=== PATIENT | female | born 1955 | race Caucasian/White ===

== ENCOUNTER → 2024-10-27 07:28 | Outpatient (REF) | payer OTHER, SELFPAY | LOC: RAD 07:28 | PROVIDERS: ATTENDING PHYSICIAN Internal Medicine | DX: Z85.841 Personal history of malignant neoplasm of brain (principal) | CPT/HCPCS: 70470; Q9967 ==

== ENCOUNTER 2025-07-04 12:01 | Emergency (ER) | payer OTHER, SELFPAY ==
[2025-07-04] VITALS (10 sets, daily range): BP systolic 127–167; BP diastolic 63–79; PULSE 74–86
[2025-07-04 12:17] LABS: Glucose - Point of Care 168 mg/dl (70-99)
--- NOTE | 2025-07-04 12:29 | ED.GENMED ---
History of Present Illness
General
Chief Complaint: Dizziness
Time Seen by Provider: 07/04/25 12:29
History of Present Illness
History of Present Illness:
PAST MEDICAL HISTORY AND REVIEW OF OLD RECORDS
- Patient comes in by ambulance from [facility]. I reviewed records, the patient had a CT in October which was in that suggested a meningioma along the right posterior paramedian occipital lobe.
Note:
CHIEF COMPLAINT(S)
Dizziness
HISTORY OF PRESENT ILLNESS
The patient is a 70-year-old female residing at [facility] long-term, presenting with dizziness. She reports that the dizziness worsens when she lifts her head or changes positions, specifically when turning to the side. The dizziness has been
persistent, resembling symptoms she experienced previously. The patient has a history of a meningioma diagnosed at [place], where two MRIs were performed. Dizziness led her to the hospital previously. She reports having no weakness in her
extremities. Currently, she also experiences mild nausea but has not vomited.
PAST MEDICAL AND SURGICAL HISTORY
The patient has a history of a diagnosed meningioma. She also has a history of diabetes, hyperlipidemia, and hypertension. She reports a history of knee issues due to repeated falls on ice, necessitating the use of a walker.
MEDICATIONS
The patient takes amlodipine, aspirin, a statin, glimepiride, metformin, and is on insulin therapy.
CHRONIC MEDICAL CONDITIONS SIGNIFICANTLY AFFECTING CARE
1. Meningioma
2. Diabetes
3. Hyperlipidemia
4. Hypertension
PHYSICAL EXAM
General: Alert, no acute distress. She does appear somewhat weak.
Skin: Warm, dry.
Head: Normocephalic and atraumatic.
Neck: Supple, trachea midline.
Eye, Ears, Nose, Mouth, and Throat: Oral mucosa moist. Examination for balance issues showed nothing dramatic.
Cardiovascular: Normal peripheral perfusion, no edema. Blood pressure slightly elevated.
Respiratory: Respirations are non-labored.
Gastrointestinal: Abdomen nondistended.
Back: Normal range of motion, normal alignment.
Musculoskeletal: Normal range of motion, normal strength. No weakness noted in extremities.
Neurological: Alert and oriented to person, place, time, and situation. Rtgqup-[id number]-cehm coordination intact. No focal neurological deficit.
Psychiatric: Cooperative, appropriate mood and affect.
PROBLEM LIST
Acute:
1. Dizziness
2. Nausea
Chronic:
1. Meningioma
2. Diabetes
3. Hyperlipidemia
4. Hypertension
PLAN
1. Administer nausea medication.
2. Provide intravenous fluids.
3. Perform a computed tomography (CT) scan to evaluate for any changes in the meningioma.
4. Await results from blood work.
DIFFERENTIAL DIAGNOSIS
The Differential Diagnosis includes, in no particular order and is not limited to:
1. Benign paroxysmal positional vertigo (BPPV)
2. Vestibular neuronitis
3. Labyrinthitis
4. Meniere�s disease
5. Cerebrovascular accident (CVA)
6. Migrainous vertigo
7. Acoustic neuroma
8. Medication-induced dizziness
9. Orthostatic hypotension
10. Persistent postural-perceptual dizziness (PPPD)
RADIOLOGY
- CT shows stable chronic calcified meningioma right occipital region
EKG
- Sinus, normal rate, nonspecific ST abnormality
LABS
- White count
UPDATE
-SUMMARY OF ENCOUNTER
The patient, a 70-year-old female, was seen in the emergency department due to experiencing dizziness, which exacerbates with head movements or positional changes. She resides at a long-term care facility. Her history includes a meningioma,
diabetes, hyperlipidemia, and hypertension. During this visit, a CT scan was performed, which showed the meningioma with no significant changes, indicating that it was stable in size and appearance compared to prior imaging. The dizziness is
suspected to be due to an inner ear issue, possibly benign paroxysmal positional vertigo (BPPV). Since no acute neurological changes were noted and the CT scan was reassuring, it was decided to discharge the patient back to the long-term care
facility with arrangements for transportation via ambulance.
DISPOSITION
Discharge to [facility]-term [facility].
ASSESSMENT
The dizziness is attributed to a likely inner ear issue such as benign paroxysmal positional vertigo (BPPV), given the symptoms and stable CT findings of the existing meningioma.
INDEPENDENT REVIEW OF LABS AND INTERPRETATION OF TESTS
My independent interpretation of the CT scan shows the meningioma is stable with no significant changes from prior imaging.
FOLLOW-UP INSTRUCTIONS
None specified.
MEDICAL DECISION MAKING
- Number and Complexity of Problems Addressed: Chronic conditions affecting care include meningioma, diabetes, hyperlipidemia, and hypertension. Differential diagnosis includes benign paroxysmal positional vertigo (BPPV), vestibular neuronitis,
labyrinthitis, M�ni�re�s disease, cerebrovascular accident (CVA), migrainous vertigo, acoustic neuroma, medication-induced dizziness, orthostatic hypotension, and persistent postural-perceptual dizziness (PPPD).
- Data: My independent interpretation of the CT scan indicated stability with no changes in the meningioma.
- Risk: Consideration of Admission/Observation: Escalation of care including admission/observation was considered given the complexity and risk of the patients presenting complaint, exam findings, and/or their underlying comorbidities. However,
ultimately I feel the patient is safe for outpatient management with close follow-up. Reasoning: Work-up reassuring, does not reveal any acute life/organ threatening processes, patients symptoms well controlled upon reevaluation, reexamination is
reassuring, vitals are stable, patient agreeable with discharge, reliable for follow-up.
DIAGNOSIS
- Dizziness [R42]
- Benign paroxysmal positional vertigo [H81.1]
- Stable meningioma [D32.9]
The patient appears comfortable on reassessment
Phy Exam
Physical Exam
Physical Exam:
See HPI
Course
Orders/Labs/Results
Orders:
Orders
07/04/25 12:04
EKG [Electrocardiogram (*1)] Urgent
Reason for Study: Vertigo / Dizzy
07/04/25 12:05
EKG- Treatment ONCE
07/04/25 12:20
Complete Blood Count/With Diff Urgent
Comprehensive Metabolic Panel Urgent
07/04/25 12:37
CT Head W/o Iv Contrast Urgent
Comment:
Reason For Exam: acute severe dizzy; known occip meningioma
0.9% Sodium Chloride 500 ml [Nss] 500 ml IV BOLUS
Ondansetron Injectable [Zofran] 4 mg IV NOW STA
Abnormal Lab Results
07/04/25 07/04/25
12:15 12:20
WBC 14.1 H 10^3/uL
(4.8-10.8)
RBC 5.52 H 10^6/uL
(4.20-5.40)
Hct 48.4 H %
(37.0-47.0)
MCHC 32.6 L g/dL
(33.0-37.0)
Abs Immat Gran (auto) 0.1 H 10^3/uL
(0-0.05)
Absolute Neuts (auto) 11.4 H 10^3/uL
(1.4-6.5)
Neutrophils % 80.8 H %
(42.2-75.2)
Lymphocytes % 13.3 L %
(20.5-51.1)
Creatinine 0.4 L mg/dL
(0.6-1.0)
Glucose 182 H mg/dl
(70-99)
POC Glucose 168 H mg/dl
(70-99)
07/04/25 12:20
07/04/25 12:20
Vital Signs
Initial and Last Documented VS:
Initial Vital Signs
Temp Pulse Resp BP Pulse Ox
36.8 C 75 22 160/63 97
07/04/25 12:05 07/04/25 12:05 07/04/25 12:05 07/04/25 12:05 07/04/25 12:05
Last Documented Vital Signs
Temp Pulse Resp BP Pulse Ox
36.8 C 66 14 127/64 95
07/04/25 12:05 07/04/25 14:15 07/04/25 14:15 07/04/25 14:00 07/04/25 14:15
*Pulse Oximetry
SaO2: 97
Oxygen Mode of Delivery: Room air
Patient hypoxic: no
*Critical Care Note
Total Time (30-74mins, 75-104mins- exclusive of procedures): Not Applicable
ED Attending Note
-
Portions of this chart may have been created with voice recognition software.� Occasional wrong word or��sound alike� substitutions may have occurred due to the inherent limitations of voice recognition software.
Discharge Plan
Departure
Patient Disposition: Home (Routine Discharge)
Date of Disposition: 07/04/25
Time of Disposition: 15:13
Patient with high blood pressure during this ER visit?: Yes
Discharge Problem:
Dizziness
Instructions: Vertigo (a Type of Dizziness) (DC), BLOOD PRESSURE
Prescriptions:
No Action
atorvastatin [Lipitor] 40 mg Tablet
40 mg PO DAILY
acetaminophen [Tylenol] 325 mg Tablet
650 mg PO Q6HPRN PRN (Reason: mild pain)
thiamine HCl (vitamin B1) 100 mg Tablet
100 mg PO DAILY
aspirin 81 mg Tablet,Delayed Release (Dr/Ec)
81 mg PO DAILY
guaifenesin 100 mg/5 mL Liquid
200 mg PO Q4HPRN PRN (Reason: cough)
glimepiride 1 mg Tablet
1 mg PO BID
amlodipine [Norvasc] 10 mg Tablet
10 mg PO DAILY
docusate sodium [Colace] 100 mg Capsule
100 mg PO BID
clobetasol 0.05 % Ointment
1 applic TOPICAL BID
metformin 500 mg Tablet Extended Release 24 Hr
500 mg PO BID
Systane Ultra (PF) 0.4-0.3 % Dropperette
1 drp BOTH EYES DAILYPRN PRN (Reason: dryness)
insulin glargine 100 unit/mL (3 mL) Insulin Pen
20 unit SC DAILY
[place] 3 Fish Oil 684-1,200 mg Capsule,Delayed Release(Dr/Ec)
1 cap PO DAILY
PreserVision AREDS 2,148 mcg-113 mg-45 mg-17.4mg Tablet
1 tab PO BID
magnesium oxide 400 mg magnesium Tablet
400 mg PO DAILY
Referrals:
Frank Basilio MD [Family Provider]
Activity Restrictions/Additional Instructions:
I suspect that your symptoms are due to positional vertigo. This can intermittently recur for several weeks and usually get better on their own. Your white blood cell count was slightly high at 14.1 but other basic labs were normal. Your glucose
was high at 182. Head CT again shows stable calcified meningioma in the right occipital region.
Interventions
Interventions:
*Risk Screen - Suicide Last Done: 07/04/25 12:12
*General Assessment Last Done: 07/04/25 12:12
*Neglect/Abuse Screening Last Done: 07/04/25 12:12
*ED- Fall Risk Assessment Last Done: 07/04/25 12:12
*ED COVID-19 Vaccine History Last Done: 07/04/25 12:12
ED- Neurological Assessment Last Done: 07/04/25 12:14
ED- Cardiac Assessment Last Done: 07/04/25 12:14
Discharge Date and Time
Print Language: URDU
[2025-07-04] MEDS: ZOFRAN 4 MG IV (12:47)
[2025-07-04] MEDS: NSS 500 IV (12:47)
[2025-07-04 13:02] LABS: Hematocrit 48.4 % (37.0-47.0); Hemoglobin 15.8 g/dL (12.0-16.0); Mean Corp Hgb Conc. 32.6 g/dL (33.0-37.0); Mean Corpuscular Volume 87.7 fL (81.0-99.0); Nucleated Red Blood Cells % 0 %; Platelet Count 351 10^3/uL (130-400); Red Cell Dist. Width 13.2 % (11.5-14.5)
[2025-07-04 13:39] LABS: ALT (SGPT) 21 U/L (0-35); AST (SGOT) 26 U/L (14-36); Albumin 4.5 g/dl (3.5-5.0); Alkaline Phosphatase 82 U/L (38-126); Blood Urea Nitrogen 13 mg/dl (7-17); Calcium 9.4 mg/dl (8.4-10.2); Carbon Dioxide 24 mmol/L (22-30); Chloride 104 mmol/L (98-107); Estimated Creatinine Clearance 94 ml/min; Glucose 182 mg/dl (70-99); Potassium 4.5 mmol/L (3.5-5.1); Sodium 136 mmol/L (135-145); Total Protein 7.8 g/dl (6.3-8.2); eGFR > 60.00
== END 2025-07-04 17:40 | disposition home or self-care (01) ==
LOC: EMR 12:01
PROVIDERS: Student in an Organized Health Care Education/Training Program; EMERGENCY PHYSICIAN Emergency Medicine; FAMILY PHYSICIAN Internal Medicine
DX: R42 Dizziness and giddiness (principal); E11.9 Type 2 diabetes mellitus without complications; I10 Essential (primary) hypertension; E78.5 Hyperlipidemia, unspecified; D32.9 Benign neoplasm of meninges, unspecified; Z79.82 Long term (current) use of aspirin; Z79.84 Long term (current) use of oral hypoglycemic drugs; Z79.4 Long term (current) use of insulin
CPT/HCPCS: 99284; 96374; 70450; 80053; 82962; 85025; 93005

== ENCOUNTER 2025-11-07 23:24 | Inpatient (IN) | payer OTHER, SELFPAY ==
[2025-11-07] VITALS (7 sets, daily range): BP systolic 124–156; BP diastolic 71–88; BMI 35.0
--- NOTE | 2025-11-07 16:39 | ED.GENMED ---
History of Present Illness
<PREET Parsons - Last Filed: 11/07/25 22:22>
General
Chief Complaint: Abdominal Symptoms
Source: patient
Exam Limitations: none
Time Seen by Provider: 11/07/25 16:30
Nursing documentation reviewed up to this point in time: agreed with
History of Present Illness
History of Present Illness:
Patient is a 70-year-old female with history of diabetes hypertension who resides at [facility]. Patient has had nausea and vomiting and diarrhea for the past several days. PT last vomited at 1 PM today last diarrhea was
yesterday. She denies any abdominal pain. Denies any new frequency urgency dysuria.
Phy Exam
<PREET Parsons - Last Filed: 11/07/25 22:22>
General Physical Exam
General Presentation: no apparent distress
General age: appears stated age
General Skin: warm and dry
General Habitus: normal
General Mental: alert
General Hydration: dry mucous membranes
Cardiovascular Exam
Cardiovascular Exam: regular rate/rhythm, no murmur and normal peripheral pulses
Pulmonary Exam
Pulmonary Exam: lungs clear and no respiratory distress
Gastrointestinal Exam
Gastrointestinal Exam: non tender and soft
Neurological Exam
Neurological Exam: alert and oriented x3
Musculoskeletal Exam
Musculoskeletal Exam: full ROM
Skin Exam
Skin Exam: normal color and warm/dry
Psychiatric Exam
Psychiatric Exam: normal mood/affect
Course
<PREET Parsons - Last Filed: 11/07/25 22:22>
Orders/Labs/Results
Orders:
Orders
11/07/25 16:42
IV Insert/Care/Rem.- Treatment PRN
11/07/25 16:44
0.9% Sodium Chloride 1000 ml [Nss] 1,000 ml IV BOLUS
Ondansetron Injectable [Zofran] 4 mg IV NOW STA
11/07/25 16:45
Basic Metabolic Panel Urgent
Complete Blood Count/With Diff Urgent
Lipase Urgent
11/07/25 18:32
Diphenhydramine [Benadryl] 25 mg IV NOW STA
Metoclopramide [Reglan] 10 mg IV NOW STA
11/07/25 18:43
EKG [Electrocardiogram (*1)] Urgent
Reason for Study: Abdominal Pain
EKG- Treatment ONCE
11/07/25 18:55
Potassium Urgent
Troponin I Urgent
11/07/25 19:27
Chest [CR Chest - 2 Views ] Urgent
Comment:
Reason For Exam: cp
11/07/25 21:04
CT Chest PE Study Urgent
Comment:
Reason For Exam: SOB
Abnormal Lab Results
11/07/25
16:45
RBC 5.60 H 10^6/uL
(4.20-5.40)
Hct 47.3 H %
(37.0-47.0)
Absolute Lymphs (auto) 1.0 L 10^3/uL
(1.2-3.4)
Absolute Monos (auto) 0.8 H 10^3/uL
(0.1-0.6)
Lymphocytes % 15.5 L %
(20.5-51.1)
Monocytes % 11.9 H %
(1.7-9.3)
BUN 22 H mg/dl
(7-17)
Creatinine 0.5 L mg/dL
(0.6-1.0)
Glucose 181 H mg/dl
(70-99)
11/07/25 16:45
11/07/25 18:55
Vital Signs
Initial and Last Documented VS:
Initial Vital Signs
Temp
99.8 F
11/07/25 16:28
Last Documented Vital Signs
Temp Pulse Resp BP Pulse Ox
99.7 F 90 18 152/86 92
11/07/25 18:32 11/07/25 22:15 11/07/25 22:15 11/07/25 21:00 11/07/25 22:00
Chip Person consulted with Physician
Chip Person consulted with physician?: Yes
Name of Physician Consulted: Gwendolyn
<Michael Snow, DO - Last Filed: 11/07/25 22:31>
Orders/Labs/Results
Orders:
Orders
11/07/25 16:42
IV Insert/Care/Rem.- Treatment PRN
11/07/25 16:44
0.9% Sodium Chloride 1000 ml [Nss] 1,000 ml IV BOLUS
Ondansetron Injectable [Zofran] 4 mg IV NOW STA
11/07/25 16:45
Basic Metabolic Panel Urgent
Complete Blood Count/With Diff Urgent
Lipase Urgent
11/07/25 18:32
Diphenhydramine [Benadryl] 25 mg IV NOW STA
Metoclopramide [Reglan] 10 mg IV NOW STA
11/07/25 18:43
EKG [Electrocardiogram (*1)] Urgent
Reason for Study: Abdominal Pain
EKG- Treatment ONCE
11/07/25 18:55
Potassium Urgent
Troponin I Urgent
11/07/25 19:27
Chest [CR Chest - 2 Views ] Urgent
Comment:
Reason For Exam: cp
11/07/25 21:04
CT Chest PE Study Urgent
Comment:
Reason For Exam: SOB
Abnormal Lab Results
11/07/25
16:45
RBC 5.60 H 10^6/uL
(4.20-5.40)
Hct 47.3 H %
(37.0-47.0)
Absolute Lymphs (auto) 1.0 L 10^3/uL
(1.2-3.4)
Absolute Monos (auto) 0.8 H 10^3/uL
(0.1-0.6)
Lymphocytes % 15.5 L %
(20.5-51.1)
Monocytes % 11.9 H %
(1.7-9.3)
BUN 22 H mg/dl
(7-17)
Creatinine 0.5 L mg/dL
(0.6-1.0)
Glucose 181 H mg/dl
(70-99)
11/07/25 16:45
11/07/25 18:55
Vital Signs
Initial and Last Documented VS:
Initial Vital Signs
Temp
99.8 F
11/07/25 16:28
Last Documented Vital Signs
Temp Pulse Resp BP Pulse Ox
99.7 F 90 18 152/86 92
11/07/25 18:32 11/07/25 22:15 11/07/25 22:15 11/07/25 21:00 11/07/25 22:00
<PREET Parsons - Last Filed: 11/07/25 22:22>
MDM/Problems Addressed
Differential Diagnosis Includes:
Not limited to viral syndrome dehydration electrolyte abnormality
MDM/Problems Addressed:
Patient is a 70-year-old female who presents from nursing care facility for nausea vomiting diarrhea for the past several days. Diarrhea has stopped however vomiting has continued. She is very nauseous. She is from [place] [facility] and was given
Zofran without relief. She denies any abdominal pain fever chills Patient was given Zofran and fluids. BUN minimally elevated at 22 creatinine 0.5
1845: Nurse reports that patient's pulse ox is in the 80s. On my exam patient is in no acute distress her lungs are clear she denies any shortness of breath. Patient was repositioned pulse ox went up into the 90s however did decrease again she
complained of some mild discomfort in her chest to the nurse will order EKG and cardiac troponin no previous CAD history. She is well-appearing in no acute distress.
2100: Cardiac troponin negative. Patient's nausea and vomiting have improved when I asked patient about this discomfort she felt that it was more discomfort from vomiting. She has no associated shortness of breath however continues to desaturate
to 88% on room air case reviewed with ED physician will order CAT scan.
2215: CT neg for PE. however continues with hypoxia however no acute distress.
CAse d/c w/ ED physician DR Snow who evaluated pt.
<PREET Parsons - Last Filed: 11/07/25 22:22>
*Radiology
Radiology exam reviewed: radiology read reviewed
*Pulse Oximetry
SaO2: 93
Oxygen Mode of Delivery: Room air
Patient hypoxic: yes
Comment: desaturated to 88 % RA
*EKG
Interpreted by ED Provider?: Yes
Heart Rate: 93
Rate: normal
Rhythm: sinus
Ischemia: non-specific ST changes
*Critical Care Note
Total Time (30-74mins, 75-104mins- exclusive of procedures): Not Applicable
ED Attending Note
<PREET Parsons - Last Filed: 11/07/25 22:22>
-
Portions of this chart may have been created with voice recognition software.� Occasional wrong word or��sound alike� substitutions may have occurred due to the inherent limitations of voice recognition software.
<Michael Snow DO - Last Filed: 11/07/25 22:31>
ED Attending Note
Patient seen and examined by attending physician: Yes
ED Attending Note:
I reviewed and agree with history treatment plan by PREET Tyson. My exam revealed 70-year-old female no acute distress, mild hypoxia. Lungs clear but decreased at bases, suspected atelectasis. Abdomen exam benign. Will admit for
further workup of hypoxia. No signs of PE on CT chest.
Discharge Plan
Departure
Patient Disposition: Admit
Date of Disposition: 11/07/25
Time of Disposition: 22:19
Admit to: Telemetry
Admit to doctor: hospitalist
Presentation/result/management discussed w/ accepting MD/DO: Hospitalist
Patient with high blood pressure during this ER visit?: Yes
Covid-19: Not Applicable
Discharge Problem:
Nausea & vomiting, Hypoxia
Prescriptions:
No Action
atorvastatin [Lipitor] 40 mg Tablet
40 mg PO HS
thiamine HCl (vitamin B1) 100 mg Tablet
100 mg PO DAILY
aspirin 81 mg Tablet,Delayed Release (Dr/Ec)
81 mg PO DAILY
glimepiride 1 mg Tablet
1 mg PO BID
amlodipine [Norvasc] 10 mg Tablet
10 mg PO DAILY
docusate sodium [Colace] 100 mg Capsule
100 mg PO BID
clobetasol 0.05 % Ointment
1 applic TOPICAL BID
metformin 500 mg Tablet Extended Release 24 Hr
500 mg PO BID
insulin glargine 100 unit/mL (3 mL) Insulin Pen
10 unit SC HS
[place] 3 Fish Oil 684-1,200 mg Capsule,Delayed Release(Dr/Ec)
1 cap PO DAILY
PreserVision AREDS 2,148 mcg-113 mg-45 mg-17.4mg Tablet
1 tab PO BID
magnesium oxide 400 mg magnesium Tablet
400 mg PO DAILY
ondansetron HCl [Zofran] 4 mg Tablet
4 mg PO Q8HPRN PRN (Reason: nausea)
meclizine 12.5 mg Tablet
12.5 mg PO BID
Systane Ultra (PF) 0.4-0.3 % Dropperette
1 drp BOTH EYES DAILYPRN PRN (Reason: dryness)
Referrals:
Frank Basilio MD [Family Provider]
Interventions
Interventions:
*Risk Screen - Suicide Last Done: 11/07/25 16:31
*General Assessment Last Done: 11/07/25 16:34
*Neglect/Abuse Screening Last Done: 11/07/25 16:31
*ED COVID-19 Vaccine History Last Done: 11/07/25 16:32
*ED Influenza Vaccine History Last Done: 11/07/25 16:32
[facility] Fall Risk Assessment Tool Last Done: 11/07/25 16:33
SN-Sdbyik-Zbsztizcra Assessment Last Done: 11/07/25 16:32
Discharge Date and Time
Print Language: KAZAKH
[2025-11-07] MEDS: NSS 1000 IV (16:46)
[2025-11-07] MEDS: ZOFRAN 4 MG IV (16:51)
[2025-11-07 17:01] LABS: Hematocrit 47.3 % (37.0-47.0); Hemoglobin 15.9 g/dL (12.0-16.0); Mean Corp Hgb Conc. 33.6 g/dL (33.0-37.0); Mean Corpuscular Volume 84.5 fL (81.0-99.0); Nucleated Red Blood Cells % 0 %; Platelet Count 386 10^3/uL (130-400); Red Cell Dist. Width 13.3 % (11.5-14.5)
[2025-11-07 17:29] LABS: Blood Urea Nitrogen 22 mg/dl (7-17); Calcium 9.3 mg/dl (8.4-10.2); Carbon Dioxide 27 mmol/L (22-30); Chloride 99 mmol/L (98-107); Estimated Creatinine Clearance 94 ml/min; Glucose 181 mg/dl (70-99); Lipase 49 U/L (23-300); Sodium 135 mmol/L (135-145); eGFR > 60.00
[2025-11-07] MEDS: REGLAN 10 MG IV (18:37)
[2025-11-07] MEDS: BENADRYL 25 MG IV (18:37)
[2025-11-07 19:30] LABS: Potassium 4.1 mmol/L (3.5-5.1)
[2025-11-07 19:41] LABS: Troponin I < 0.012 ng/ml
--- NOTE | 2025-11-07 23:19 | HPS.HSE ---
Family Physician
-
Family Physician: Frank Basilio
Chief Complaint
-
abdominal pain/nausea vomiting
History of Present Illness
70 female history of diabetes hyperlipidemia BPPV hypertension who presented with abdominal pain nausea vomiting that acutely began after 4 PM on Friday after eating a soft pretzel. States other members at her nursing facility ate the same
pretzel without issue. Admits to last vomiting overall at around 2:05 PM after drinking water. However now continues to have nausea vomiting states that she feels like she overdid it.
States that she has diarrhea frequently this is related to apple juice and is not a new/acute issue
Prior to ED was hypoxic to the mid 80s on arrival therefore started on supplemental oxygen. Chest CT linear and band shaped opacities within the inferior posterior aspect of both lower lungs compatible with linear/discoid atelectasis.
Medical History
Past Medical History
Past Medical History: Reports GERD, HTN and Hypercholesterolemia
Past Surgical History: Reports Other
Social History
Alcohol: None
Drug: None
Family History
Family History: Not pertinent
Allergies / Home Medications
Allergies reflects when Allergies were last updated in [employer].
Home Medications with original date entered in [employer]
Allergy/Medication List:
Allergies
Allergy/AdvReac Type Severity Reaction Status Date / Time
No Known Allergies Allergy Verified 07/04/25 12:12
Home Medications
amlodipine 10 mg tablet (Norvasc) 10 mg PO DAILY 07/04/25
aspirin 81 mg tablet,delayed release 81 mg PO DAILY 07/04/25
atorvastatin 40 mg tablet (Lipitor) 40 mg PO HS 07/04/25
clobetasol 0.05 % topical ointment 1 applic topical BID psoriasis 07/04/25
docusate sodium 100 mg capsule (Colace) 100 mg PO BID Constipation 07/04/25
glimepiride 1 mg tablet 1 mg PO BID Diabetes 07/04/25
insulin glargine 100 unit/mL (3 mL) subcutaneous pen 10 unit SC HS 07/04/25
magnesium oxide 400 mg PO DAILY 07/04/25
metformin 500 mg tablet,extended release 24 hr 500 mg PO BID 07/04/25
omega-3 fatty acids-fish oil 684 mg-1,200 mg capsule,delayed release 1 cap PO DAILY Supplement 07/04/25
thiamine HCl (vitamin B1) 100 mg tablet 100 mg PO DAILY 07/04/25
vitamins A,C,V-njyz-jpqmbw 2,148 mcg-113 mg-45 mg-17.4 mg tablet (PreserVision AREDS) 1 tab PO BID 07/04/25
meclizine 12.5 mg tablet 12.5 mg PO BID 11/07/25
ondansetron HCl 4 mg tablet 4 mg PO Q8HPRN PRN nausea 11/07/25
peg 400-propylene glycol (PF) 0.4 %-0.3 % eye drops in a dropperette 1 drp BOTH EYES DAILYPRN PRN dryness 11/07/25
Review of Systems
-
A 12 point ROS was completed and negative except as noted: Yes
Physical Exam
Vital Signs
Vital Signs
Temp Pulse Resp BP Pulse Ox
99.7 F 87 18 152/86 92
11/07/25 18:32 11/07/25 22:30 11/07/25 22:30 11/07/25 21:00 11/07/25 22:30
Physical Exam
General: Well Developed, Well Nourished and No Apparent Distress
HEENT: NormoCephalic, Anicteric and Moist mucous membranes
Respiratory: Crackles (b/l bases) and Non Labored Respirations
Cardiac: S1/S2 and Regular Rhythm
Musculoskeletal: No Clubbing and No Cyanosis
Skin: Warm and Dry
Neuro: Awake and AO x 3
Psych: Calm
Laboratory Results
-
11/07/25 16:45
11/07/25 18:55
Laboratory Results
Total Bilirubin Cancelled 11/07/25 16:45
AST Cancelled 11/07/25 16:45
ALT Cancelled 11/07/25 16:45
Alkaline Phosphatase Cancelled 11/07/25 16:45
Troponin I < 0.012 ng/ml 11/07/25 18:55
Lipase 49 U/L (23-300) 11/07/25 16:45
Impression/Plan
-
Acute hypoxemic respiratory failure likely secondary to aspiration versus atelectasis
Wean oxygen as tolerated
DuoNebs shortness of breath
Incentive spirometer
Acapella
Monitor off of antibiotics
Acute gastroenteritis
Supportive care
IV fluids
Antiemetics
Clear liquid diet
Hypertension
Continue antihypertensives
Hyperlipidemia
Continue statin
Diabetes insulin-dependent
Hold metformin
Continue long-acting insulin
SSI
Carb controlled diet when able to tolerate p.o.
[2025-11-08] VITALS: BP 146/78
[2025-11-08 01:00] VITALS: BP 134/71
[2025-11-08 01:33] VITALS: BMI 34.2
[2025-11-08 02:08] VITALS: BP 144/82
[2025-11-08 07:30] VITALS: BP 135/65
[2025-11-08 08:36] LABS: Hematocrit 46.4 % (37.0-47.0); Hemoglobin 15.4 g/dL (12.0-16.0); Mean Corp Hgb Conc. 33.2 g/dL (33.0-37.0); Mean Corpuscular Volume 86.9 fL (81.0-99.0); Platelet Count 333 10^3/uL (130-400); Red Cell Dist. Width 13.3 % (11.5-14.5)
[2025-11-08 09:24] LABS: Glucose - Point of Care 182 mg/dl (70-99)
[2025-11-08] MEDS: MAGNESIUM OXIDE 400 MG PO (09:26)
[2025-11-08] MEDS: ANTIVERT 12.5 MG PO ×2 (09:26→20:36)
[2025-11-08] MEDS: ASPIR LOW (ENTERIC COATED) 81 MG PO (09:26)
[2025-11-08] MEDS: NORVASC 10 MG PO (09:26)
[2025-11-08] MEDS: COLACE 100 MG PO ×2 (09:26→20:36)
--- NOTE | 2025-11-08 09:54 | W.PN.HOSP.TC ---
Today's Communication/Plan
-
Advance diet as tolerated
Stool studies if diarrhea recurs
Assessment / Plan
Assessment / Plan
Gen-AAOx3, NAD
HEENT-NC, AT, anicteric, clear oral mm
Neck-supple
CV-reg, no M, +S1/S2
Lungs-clear B/L
Abd-soft, NT, ND
Ext-no edema
Musculoskeletal-no cyanosis, clubbing
Skin-warm and dry
Neuro-grossly non-focal
Psych-calm, cooperative
Acute hypoxic respiratory failure -suspect due to acute aspiration pneumonitis due to vomiting. Oxygenation stable on 2 L, wean down as able. No clinical evidence of pneumonia. No indication for antibiotics.
CT chest reviewed. No pulmonary embolism. Does show atelectasis. Encourage incentive spirometry.
Denies smoking history. Was exposed to secondhand smoke growing up. Denies history of COPD or asthma.
Acute gastroenteritis -improving. Continue supportive care. Advance diet as tolerated. Currently on clear liquids. Continue antiemetics.
Last episode of diarrhea was 48 hours ago. If diarrhea recurs then we will need to send stool specimens.
DM 2 without hyperglycemia -on metformin, glimepiride, glargine insulin prior to admission.
In the hospital she is on glargine 10 units at bedtime, aspart low resistance corrective scale.
Essential hypertension -stable.
Hyperlipidemia -atorvastatin.
GERD
BPPV
Meningioma
Obesity due to excess calories
Full code
Dispo -back to [facility] when medically stable.
Anticipated Discharge: Within 24 hours
Subjective/Interval History
-
Date of Service: November 08, 2025
Patient seen and examined. Diarrhea resolved. Nausea overall improving. Denies abdominal pain. Denies shortness of breath.
Objective Data
-
Labs:
Laboratory Results
11/08/25
08:03
WBC 6.8
Hgb 15.4
Hct 46.4
Plt Count 333
Sodium Pending
Potassium Pending
Chloride Pending
Carbon Dioxide Pending
BUN Pending
Creatinine Pending
Glucose Pending
Calcium Pending
Vital Signs:
Vital Signs
Temp Pulse Resp BP Pulse Ox
98.9 F 79 20 135/65 97
11/08/25 07:30 11/08/25 07:30 11/08/25 07:30 11/08/25 07:30 11/08/25 07:30
Review of Systems
-
History Source: Patient
All other systems: Reviewed and negative
[2025-11-08] MEDS: NOVOLOG FLEXPEN-LOW RESISTANCE 1 UNITS SC ×2 (10:00→19:27)
[2025-11-08] MEDS: VITAMIN B1 PO (10:01)
[2025-11-08 10:22] LABS: Blood Urea Nitrogen 17 mg/dl (7-17); Calcium 9.0 mg/dl (8.4-10.2); Carbon Dioxide 29 mmol/L (22-30); Chloride 103 mmol/L (98-107); Estimated Creatinine Clearance 93 ml/min; Glucose 137 mg/dl (70-99); Potassium 3.9 mmol/L (3.5-5.1); Sodium 137 mmol/L (135-145); eGFR > 60.00
[2025-11-08 13:39] LABS: Glucose - Point of Care 112 mg/dl (70-99)
[2025-11-08] MEDS: NOVOLOG FLEXPEN-LOW RESISTANCE SC (13:39)
--- NOTE | 2025-11-08 15:21 | CM ---
Patient seen bedside w/ friend, initial assessment completed. Patient is a 70 female history of diabetes hyperlipidemia BPPV hypertension who presented with abdominal pain nausea vomiting. Currently on 2L O2, does not use at baseline.
Patient is a LTC resident at [facility], has been residing at [place] for almost 2 years. Patient is independent w/ RW, independent w/ ADLs and personal care. Patient stated she walks in the community to latter day and assists other residents in the
facility. Patient stated she works w/ PT, last time being last Friday. Patient eats meals in her room. Worked as a caregiver for 8 years.
PCP: Frank Basilio
Pharmacy: [facility]
Plan: Return to [facility]- LTC
[2025-11-08 15:40] VITALS: BP 129/58
[2025-11-08 16:43] LABS: Hepatitis C Antibody Negative (Negative)
[2025-11-08] MEDS: ZOFRAN 4 MG IV (17:18)
[2025-11-08 17:22] LABS: Glucose - Point of Care 157 mg/dl (70-99)
[2025-11-08] MEDS: LOVENOX 40 MG SC (17:22)
[2025-11-08] MEDS: COMPAZINE 10 MG IV (18:36)
[2025-11-08 21:31] LABS: Glucose - Point of Care 138 mg/dl (70-99)
[2025-11-08] MEDS: LIPITOR 40 MG PO (21:37)
[2025-11-08] MEDS: LANTUS 0.1 UNITS SC (21:37)
[2025-11-08 22:41] VITALS: BP 131/73
[2025-11-09 07:40] VITALS: BP 137/58
[2025-11-09 08:20] LABS: Glucose - Point of Care 146 mg/dl (70-99)
[2025-11-09] MEDS: NOVOLOG FLEXPEN-LOW RESISTANCE SC ×3 (09:24→17:17)
[2025-11-09] MEDS: ASPIR LOW (ENTERIC COATED) 81 MG PO (09:28)
[2025-11-09] MEDS: MAGNESIUM OXIDE 400 MG PO (09:28)
[2025-11-09] MEDS: ANTIVERT 12.5 MG PO ×2 (09:28→20:42)
[2025-11-09] MEDS: VITAMIN B1 100 MG PO (09:29)
[2025-11-09] MEDS: NORVASC 10 MG PO (09:29)
[2025-11-09] MEDS: COLACE PO (09:30)
[2025-11-09] MEDS: ZOFRAN 4 MG PO (10:26)
--- NOTE | 2025-11-09 11:47 | W.PN.HOSP.TC ---
Addendum entered and electronically signed by Liang Francisco DO 11/09/25 14:08:
Informed by nursing that patient has a temp of 100.2 �F, complaining of ongoing mild nausea and does not feel comfortable with discharge.
Will check labs.
Add Protonix daily.
Monitor overnight. Hopefully discharge tomorrow.
Original Note:
Today's Communication/Plan
-
Discharge
Assessment / Plan
Assessment / Plan
Gen-AAOx3, NAD
HEENT-NC, AT, anicteric, clear oral mm
Neck-supple
CV-reg, no M, +S1/S2
Lungs-clear B/L
Abd-soft, NT, ND
Ext-no edema
Musculoskeletal-no cyanosis, clubbing
Skin-warm and dry
Neuro-grossly non-focal
Psych-calm, cooperative
Acute hypoxic respiratory failure -suspect due to acute aspiration pneumonitis due to vomiting. Oxygenation now improved, currently on room air.
No clinical evidence of pneumonia. No indication for antibiotics.
CT chest reviewed. No pulmonary embolism. Does show atelectasis. Encourage incentive spirometry.
Denies smoking history. Was exposed to secondhand smoke growing up. Denies history of COPD or asthma.
Acute gastroenteritis -improving. Continue supportive care. Diet advanced to diabetic diet yesterday. Continue antiemetics as needed.
No diarrhea or bowel movements in the hospital.
DM 2 without hyperglycemia -on metformin, glimepiride, glargine insulin prior to admission.
In the hospital she is on glargine 10 units at bedtime, aspart low resistance corrective scale.
Essential hypertension -stable.
Hyperlipidemia -atorvastatin.
GERD
BPPV
Meningioma
Obesity due to excess calories
Full code
Dispo -back to [facility] today. Outpatient follow-up.
Updated case management.
32 minutes spent in discharge process.
Anticipated Discharge: Today
Subjective/Interval History
-
Date of Service: November 09, 2025
Patient seen and examined. Overall feeling better. Very mild nausea. Denies diarrhea.
Objective Data
-
Vital Signs:
Vital Signs
Temp Pulse Resp BP Pulse Ox
98.3 F 87 20 137/58 91
11/09/25 07:40 11/09/25 07:40 11/09/25 07:40 11/09/25 07:40 11/09/25 07:40
I&O
11/08/25 11/09/25 11/10/25
06:59 06:59 06:59
Intake Total 960 / 960
Balance 960 / 960
Review of Systems
-
History Source: Patient
All other systems: Reviewed and negative
--- NOTE | 2025-11-09 11:57 | W.DS.TRANS ---
DC Summary - Materials Clerk
-
Discharge Instructions:
Discharge Diagnosis/Procedures Acute gastroenteritis
Diet Diabetic, Carb Controlled
Activity As tolerated
Driving Restrictions No driving
Bathing Restrictions None
Instructions:
Stand-Alone Forms:
Changes to Home Medications: Yes
Discharge Medications:
DC Medications w/original date entered in PostedIn
amlodipine 10 mg tablet (Norvasc) 10 mg PO DAILY 07/04/25
aspirin 81 mg tablet,delayed release 81 mg PO DAILY 07/04/25
atorvastatin 40 mg tablet (Lipitor) 40 mg PO HS 07/04/25
clobetasol 0.05 % topical ointment 1 applic topical BID psoriasis 07/04/25
docusate sodium 100 mg capsule (Colace) 100 mg PO BID Constipation 07/04/25
insulin glargine 100 unit/mL (3 mL) subcutaneous pen 10 unit SC HS 07/04/25
magnesium oxide 400 mg PO DAILY 07/04/25
metformin 500 mg tablet,extended release 24 hr 500 mg PO BID 07/04/25
Held on 11/09/25. Instructions: Resume on 11/10/25.
omega-3 fatty acids-fish oil 684 mg-1,200 mg capsule,delayed release 1 cap PO DAILY Supplement 07/04/25
thiamine HCl (vitamin B1) 100 mg tablet 100 mg PO DAILY 07/04/25
vitamins A,C,Z-zwmp-jhgnbl 2,148 mcg-113 mg-45 mg-17.4 mg tablet (PreserVision AREDS) 1 tab PO BID 07/04/25
meclizine 12.5 mg tablet 12.5 mg PO BID 11/07/25
ondansetron HCl 4 mg tablet 4 mg PO Q8HPRN PRN nausea 11/07/25
peg 400-propylene glycol (PF) 0.4 %-0.3 % eye drops in a dropperette 1 drp BOTH EYES DAILYPRN PRN dryness 11/07/25
Home Medication Changes
Stop glimepiride
Pending Results: No
--- NOTE | 2025-11-09 12:09 | CM ---
Addendum entered by Tay Mayen 11/09/25 13:22:
Discharge cancelled today, patient w/ 100.2 temp
Original Note:
Patient stable for discharge today
Updated [facility] admissions
Updated patient bedside, aware of discharge today. IMM verbally reviewed, copy provided, copy on chart
W/c van transport
[facility]- LTC
Report: [phone]

Plan: Return to [facility]
[2025-11-09 12:43] LABS: Glucose - Point of Care 118 mg/dl (70-99)
[2025-11-09 12:55] VITALS: BP 140/74
--- NOTE | 2025-11-09 13:16 | PTCARENOTE ---
Last set of vitals prior to discharge show oral temp of 100.2. Patient has complaints of general malaise and intermittent nausea. Reports only having 1/2 cup of hot tea for breakfast. Dr. rFancisco made aware. Orders noted to cancel discharge, obtain
lipase level, and protonix added.
[2025-11-09 14:33] LABS: Hematocrit 49.1 % (37.0-47.0); Hemoglobin 17.0 g/dL (12.0-16.0); Mean Corp Hgb Conc. 34.6 g/dL (33.0-37.0); Mean Corpuscular Volume 84.4 fL (81.0-99.0); Nucleated Red Blood Cells % 0 %; Platelet Count 375 10^3/uL (130-400); Red Cell Dist. Width 12.8 % (11.5-14.5)
[2025-11-09] MEDS: PROTONIX 40 MG PO (15:03)
[2025-11-09 15:30] LABS: ALT (SGPT) 20 U/L (0-35); AST (SGOT) 22 U/L (14-36); Albumin 4.2 g/dl (3.5-5.0); Alkaline Phosphatase 85 U/L (38-126); Blood Urea Nitrogen 10 mg/dl (7-17); Calcium 9.3 mg/dl (8.4-10.2); Carbon Dioxide 27 mmol/L (22-30); Chloride 97 mmol/L (98-107); Estimated Creatinine Clearance 93 ml/min; Glucose 124 mg/dl (70-99); Lipase 188 U/L (23-300); Potassium 3.8 mmol/L (3.5-5.1); Sodium 134 mmol/L (135-145); Total Protein 7.2 g/dl (6.3-8.2); eGFR > 60.00
[2025-11-09 15:40] VITALS: BP 135/74
[2025-11-09 17:18] LABS: Glucose - Point of Care 127 mg/dl (70-99)
[2025-11-09] MEDS: LOVENOX 40 MG SC (17:20)
[2025-11-09] MEDS: NSS 1000 IV (17:58)
--- NOTE | 2025-11-09 19:13 | PTCARENOTE ---
Now requiring oxygen, SaO2 88% on room air, now on 2L, 91%. Complains of excessive throat clearing, nursing level speech consult placed. Dr. Fracnisco made aware, new orders noted. Reported off to oncoming retail shift manager RN.
[2025-11-09 20:06] LABS: COVID-19 Antigen Negative (Negative)
[2025-11-09] MEDS: COLACE 100 MG PO (20:42)
[2025-11-09 21:03] LABS: Glucose - Point of Care 120 mg/dl (70-99)
[2025-11-09] MEDS: LIPITOR 40 MG PO (21:59)
[2025-11-09] MEDS: LANTUS 0.1 UNITS SC (22:00)
[2025-11-09 23:25] VITALS: BP 123/68
[2025-11-10] MEDS: NSS 1000 IV (03:47)
[2025-11-10 07:53] LABS: Hematocrit 45.8 % (37.0-47.0); Hemoglobin 15.6 g/dL (12.0-16.0); Mean Corp Hgb Conc. 34.1 g/dL (33.0-37.0); Mean Corpuscular Volume 84.0 fL (81.0-99.0); Nucleated Red Blood Cells % 0 %; Platelet Count 365 10^3/uL (130-400); Red Cell Dist. Width 13.0 % (11.5-14.5)
--- NOTE | 2025-11-10 08:08 | W.PN.HOSP.TC ---
Today's Communication/Plan
-
Ambulatory pulse ox on room air
Discharge if tolerates breakfast
Assessment / Plan
Assessment / Plan
Gen-AAOx3, NAD
HEENT-NC, AT, anicteric, clear oral mm
Neck-supple
CV-reg, no M, +S1/S2
Lungs-clear B/L
Abd-soft, NT, ND
Ext-no edema
Musculoskeletal-no cyanosis, clubbing
Skin-warm and dry
Neuro-grossly non-focal
Psych-calm, cooperative
Acute hypoxic respiratory failure -suspect due to acute aspiration pneumonitis due to vomiting. Oxygenation now improved, currently on room air.
Evaluated by speech therapy this morning, no skilled therapy recommended.
No clinical evidence of pneumonia. No indication for antibiotics.
CT chest reviewed. No pulmonary embolism. Does show atelectasis. Encourage incentive spirometry.
Denies smoking history. Was exposed to secondhand smoke growing up. Denies history of COPD or asthma.
Check ambulatory pulse ox on room air.
Acute gastroenteritis -resolved. Denies nausea or abdominal discomfort today. Appetite improved. She is eager to eat eggs for breakfast.
No diarrhea or bowel movements in the hospital.
DM 2 without hyperglycemia -on metformin, glimepiride, glargine insulin prior to admission.
In the hospital she is on glargine 10 units at bedtime, aspart low resistance corrective scale.
Glucoses are controlled in the hospital.
Essential hypertension -stable.
Hyperlipidemia -atorvastatin.
GERD
BPPV
Meningioma
Obesity due to excess calories
Full code
Dispo -back to [facility] today. Outpatient follow-up.
Updated case management.
Anticipated Discharge: Today
Subjective/Interval History
-
Date of Service: November 10, 2025
Patient seen and examined. Feels much better today. Appetite is coming back. No new complaints.
Objective Data
-
Labs:
Laboratory Results
11/10/25
07:38
WBC 14.0 H
Hgb 15.6
Hct 45.8
Plt Count 365
Sodium Pending
Potassium Pending
Chloride Pending
Carbon Dioxide Pending
BUN Pending
Creatinine Pending
Glucose Pending
Calcium Pending
Vital Signs:
Vital Signs
Temp Pulse Resp BP Pulse Ox
98.0 F 75 18 123/68 90
11/09/25 23:25 11/09/25 23:25 11/09/25 23:25 11/09/25 23:25 11/10/25 00:58
I&O
11/09/25 11/10/25 11/11/25
06:59 06:59 06:59
Intake Total 960 / 960 480 / 480
Balance 960 / 960 480 / 480
Review of Systems
-
History Source: Patient
All other systems: Reviewed and negative
[2025-11-10 08:17] LABS: Glucose - Point of Care 116 mg/dl (70-99)
[2025-11-10 08:23] LABS: Blood Urea Nitrogen 12 mg/dl (7-17); Calcium 9.1 mg/dl (8.4-10.2); Carbon Dioxide 24 mmol/L (22-30); Chloride 103 mmol/L (98-107); Estimated Creatinine Clearance 93 ml/min; Glucose 125 mg/dl (70-99); Potassium 3.8 mmol/L (3.5-5.1); Sodium 134 mmol/L (135-145); eGFR > 60.00
[2025-11-10 08:28] VITALS: BP 166/82
[2025-11-10] MEDS: NOVOLOG FLEXPEN-LOW RESISTANCE SC ×2 (08:52→12:19)
[2025-11-10] MEDS: VITAMIN B1 100 MG PO (08:57)
[2025-11-10] MEDS: COLACE 100 MG PO (08:57)
[2025-11-10] MEDS: NORVASC 10 MG PO (08:57)
[2025-11-10] MEDS: MAGNESIUM OXIDE 400 MG PO (08:57)
[2025-11-10] MEDS: PROTONIX 40 MG PO (08:57)
[2025-11-10] MEDS: ASPIR LOW (ENTERIC COATED) 81 MG PO (08:57)
[2025-11-10] MEDS: ANTIVERT 12.5 MG PO (08:57)
[2025-11-10 12:02] LABS: Glucose - Point of Care 112 mg/dl (70-99)
[2025-11-10] MEDS: FLUZONE HIGH-DOSE 2025-26 0.5 ML IM (13:07)
[2025-11-10] MEDS: PREVNAR 20 0.5 ML IM (13:08)
[2025-11-10 15:09] VITALS: BP 131/73
== END 2025-11-10 15:46 | DRG 177 ==
LOC: 4 WEST ACU 23:24
PROVIDERS: Nurse Practitioner; ADMITTING PHYSICIAN Hospitalist; ATTENDING PHYSICIAN Hospitalist; EMERGENCY PHYSICIAN Emergency Medicine; FAMILY PHYSICIAN Internal Medicine
PROC: 3E02340 Introduction of Influenza Vaccine into Muscle, Percutaneous Approach (ICD-10-PCS; 2025-11-10)
PROC: 3E0234Z Introduction of Serum, Toxoid and Vaccine into Muscle, Percutaneous Approach (ICD-10-PCS; 2025-11-10)
DX: J69.0 Pneumonitis due to inhalation of food and vomit (principal); J96.01 Acute respiratory failure with hypoxia; J98.11 Atelectasis; E11.9 Type 2 diabetes mellitus without complications; I10 Essential (primary) hypertension; E78.00 Pure hypercholesterolemia, unspecified; H81.10 Benign paroxysmal vertigo, unspecified ear; E66.09 Other obesity due to excess calories; K21.9 Gastro-esophageal reflux disease without esophagitis; D32.9 Benign neoplasm of meninges, unspecified; K52.9 Noninfective gastroenteritis and colitis, unspecified; Z77.22 Contact with and (suspected) exposure to environmental tobacco smoke (acute) (chronic); Z79.82 Long term (current) use of aspirin; Z79.84 Long term (current) use of oral hypoglycemic drugs; Z79.4 Long term (current) use of insulin; Z68.34 Body mass index [BMI] 34.0-34.9, adult; Z23 Encounter for immunization; Z11.52 Encounter for screening for COVID-19
CPT/HCPCS: 71046; 71275; 80048; 80053; 82962; 83690; 84132; 84484; 85025; 85027; 86803; 87502; 87811; 90662; 90677; 93005; 96374; 96375; 99285; G0008; G0009; Q9967